=== PATIENT | male | born 1950 | race Caucasian/White ===

== ENCOUNTER → 2018-03-20 | Outpatient (CLI) | payer MEDICARE | END | disposition home or self-care (01) | LOC: PETCFH 09:20 | PROVIDERS: ATTEND Internal Medicine Hematology & Oncology | DX: N20.0 Calculus of kidney (principal); C43.9 Malignant melanoma of skin, unspecified; D72.829 Elevated white blood cell count, unspecified | CPT/HCPCS: 78816; A9552 ==